=== PATIENT | female | born 1940 | race Caucasian/White ===

== ENCOUNTER 2016-09-28 12:03 | Emergency (ER) | payer MEDICARE, BC ==
[~2016-09-28] VITALS: Ht 152.4 cm; Wt 64.0 kg
[2016-09-28 12:05] VITALS: BP 147/78
== END 2016-09-28 13:36 | disposition home or self-care (01) ==
LOC: ED 12:45
DX: K08.89 Other specified disorders of teeth and supporting structures (principal); J44.9 Chronic obstructive pulmonary disease, unspecified
CPT/HCPCS: 99283